=== PATIENT | female | born 1990 | race Caucasian/White ===

== ENCOUNTER 2022-04-04 04:55 | Inpatient (IN) | payer BC ==
[2022-04-04 05:17] VITALS: BMI 33.3
[2022-04-04] MEDS ORDERED: Penicillin G Potassium 5 MILL.UNITS VIAL ONE (05:32)
[2022-04-04] MEDS ORDERED: hydrALAZINE 20 MG/ML VIAL SLOW IVP PRN ×2 (05:33→15:37)
[2022-04-04] MEDS ORDERED: Butorphanol Tartrate 1 MG/ML VIAL SLOW IVP PRN (05:33)
[2022-04-04] MEDS ORDERED: Ondansetron PF 4 MG/2 ML Vial IVP PRN ×2 (05:33→15:37)
[2022-04-04] MEDS ORDERED: Lactated Ringer's 1,000 ML IV PRN (05:33)
[2022-04-04] MEDS ORDERED: Methylergonovine 0.2 MG/ML VIAL IM PRN ×2 (05:33→15:37)
[2022-04-04] MEDS ORDERED: Lidocaine 1% (PF) 30 ML VIAL SC PRN (05:33)
[2022-04-04] MEDS ORDERED: Misoprostol 200 MCG TAB PR PRN (05:33)
[2022-04-04] MEDS ORDERED: Promethazine HCl 25 MG/ML VIAL IM PRN ×2 (05:33→15:37)
[2022-04-04] MEDS ORDERED: HYDROcodone/Acetaminophen 5/325 mg Tablet PO PRN ×4 (05:33→15:37)
[2022-04-04] MEDS ORDERED: Ibuprofen 800 MG TAB PO PRN (05:33)
[2022-04-04] MEDS ORDERED: Penicillin G Potassium 5 MILL.UNITS in Sodium Chloride 0.9% 100 ML IVPB SCH (05:45)
[2022-04-04 05:47] LABS: Mean Corpuscular HGB CONC 35.3 g/dL (32.0-36.0); Mean Corpuscular Hemoglobin 30.6 pg (27.0-33.0); Mean Corpuscular Volume 86.9 fl (81.6-98.3); Mean Platelet Volume 10.1 fl (7.4-10.4); Platelet Count 184 10x3/uL (150-450); RBC Distribution Width 12.4 % (11.5-14.5); Red Blood Cell (RBC) Count 3.59 10x6/uL (3.90-5.03); White Blood Cell (WBC) Count 7.7 10x3/uL (3.5-10.5)
[2022-04-04 06:17] LABS: Syphilis Antibody Nonreactive (Nonreactive); Syphilis Antibody Index 0.09 S/CO (<1.00 Non-Reactive)
[2022-04-04 06:18] LABS: Hep B Surf Ag Non-Reactive S/CO (NonReactive)
[2022-04-04 06:20] LABS: HBSAg Index 0.14 S/CO (0-0.99)
[2022-04-04] MEDS: Penicillin G 2.5 MILL.units 2.5 MILL.UNITS in Premix Bag 1 BAG IVPB SCH ×2 (08:57→15:57)
[2022-04-04] MEDS: NS w/ Oxytocin 30 units 500 ML IV SCH ×2 (12:36→13:20)
[2022-04-04] MEDS ORDERED: Benzocaine-Menthol 82.5 ML CAN TOP PRN (15:37)
[2022-04-04] MEDS ORDERED: Misoprostol 200 MCG TAB VAG PRN (15:37)
[2022-04-04] MEDS ORDERED: Bisacodyl 10 MG SUPP PR PRN (15:37)
[2022-04-04] MEDS ORDERED: Boostrix 0.5 ML (Tdap) VIAL IM ONE (15:37)
[2022-04-04] MEDS ORDERED: Milk Of Magnesia 30 ML UDCUP PO PRN (15:37)
[2022-04-04] MEDS ORDERED: NS w/ Oxytocin 30 units 500 ML IV SCH (15:37)
[2022-04-04] MEDS: Ferrous Sulfate 325 MG TAB PO SCH (19:03)
[2022-04-04] MEDS: Ibuprofen 800 MG TAB PO SCH (20:34)
[2022-04-04] MEDS: Docusate 100 MG CAP PO SCH (20:34)
[2022-04-05] MEDS: Ibuprofen 800 MG TAB PO SCH ×3 (05:02→21:34)
[2022-04-05] MEDS: Levothyroxine Sodium 25 MCG TAB PO SCH (07:21)
[2022-04-05] MEDS: Prenatal Vitamin 1 TAB PO SCH (09:07)
[2022-04-05] MEDS: Docusate 100 MG CAP PO SCH ×2 (09:07→21:34)
[2022-04-05] MEDS: Ferrous Sulfate 325 MG TAB PO SCH ×2 (09:09→18:10)
[2022-04-05] MEDS ORDERED: Lanolin Ointment 7 GM TUBE TOP PRN (23:32)
[2022-04-06] MEDS: Levothyroxine Sodium 25 MCG TAB PO SCH (06:29)
[2022-04-06] MEDS: Ibuprofen 800 MG TAB PO SCH (06:29)
[2022-04-06] MEDS: Ferrous Sulfate 325 MG TAB PO SCH (08:38)
[2022-04-06] MEDS: Docusate 100 MG CAP PO SCH (08:41)
[2022-04-06] MEDS: Prenatal Vitamin 1 TAB PO SCH (08:41)
[2022-04-06 09:18] VITALS: BP 101/55; TEMP 97.9
== END 2022-04-06 15:04 | disposition home or self-care (01) | DRG 806 ==
LOC: CSHLD/OP 04:55 → CSHLD 05:33 → CSHPP 15:28
PROVIDERS: ADMIT Student in an Organized Health Care Education/Training Program; ATTEND Student in an Organized Health Care Education/Training Program
PROC: 10E0XZZ Delivery of Products of Conception, External Approach (ICD-10-PCS; principal; 2022-04-04)
DX: O99.824 Streptococcus B carrier state complicating childbirth (principal); O26.873 Cervical shortening, third trimester; Z37.0 Single live birth; O99.284 Endocrine, nutritional and metabolic diseases complicating childbirth; Z20.822 Contact with and (suspected) exposure to COVID-19; E03.9 Hypothyroidism, unspecified; Z3A.39 39 weeks gestation of pregnancy
CPT/HCPCS: 85027; 86780; 86850; 86900; 86901; 87340; 99285; J2540; J2590; J3490; J7120; U0003; U0005